=== PATIENT | male | born 2000 | race American Indian/Alaskan Native ===

== ENCOUNTER 2022-11-25 21:05 | Emergency (ER) | payer MEDICAID, OTHER | END 2022-11-25 22:47 | disposition home or self-care (01) | LOC: DL.ED 21:05 | DX: M25.562 Pain in left knee (principal) | CPT/HCPCS: 73562-LT; 99283 ==

== ENCOUNTER 2024-06-26 11:10 | Emergency (ER) | payer MEDICAID, OTHER ==
[2024-06-26] MEDS: Bacitracin Oint 1 GM U/D Packet TOP ONE (11:32)
[2024-06-26] MEDS: Diphtheria,Pertussis(Acell),Tetanus Vaccine 0.5 ML Syringe IM ONE (11:32)
[2024-06-26] MEDS: Lidocaine 1% 5 ML VIAL INJECT ONE (11:32)
== END 2024-06-26 12:07 | disposition home or self-care (01) ==
LOC: DL.ED 11:10
DX: S61.011A Laceration without foreign body of right thumb without damage to nail, initial encounter (principal); W26.8XXA Contact with other sharp object(s), not elsewhere classified, initial encounter; Y99.0 Civilian activity done for income or pay; Z23 Encounter for immunization
CPT/HCPCS: 12001; 90471; 90715; 99282; A9270; J3490